=== PATIENT | female | born 1955 | race Two or more races ===

== ENCOUNTER 2016-11-27 10:12 | Emergency (ER) | payer SELFPAY ==
[2016-11-27 10:24] VITALS: TEMP 98.5; BMI 30.2
[2016-11-27] MEDS ORDERED: [UNRECOGNIZED DRUG - OTHER] TOP ONE (10:29)
[2016-11-27] MEDS ORDERED: LORAZEPAM 1 MG TAB PO ONE (10:29)
[2016-11-27] MEDS ORDERED: DIPHTHERIA AND TETANUS (ADULT) 0.5 ML SYR IM ONE (10:29)
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
[2016-11-27 11:49] VITALS: BP 161/85; PULSE 103
== END 2016-11-27 11:46 | disposition home or self-care (01) ==
LOC: ED 10:12
DX: S09.93XA Unspecified injury of face, initial encounter (principal); Y04.2XXA Assault by strike against or bumped into by another person, initial encounter; Y93.9 Activity, unspecified; Z23 Encounter for immunization
CPT/HCPCS: 90471; 90714; 99283; J3490